=== PATIENT | male | born 1960 | race Caucasian/White ===

== ENCOUNTER 2017-11-01 15:11 | Inpatient (IN) | payer MEDICAID ==
[~2017-11-01] VITALS: Ht 175.3 cm; Wt 78.0 kg
[2017-11-01 15:15] VITALS: BP 142/83
[2017-11-01] MEDS ORDERED: NACL 0.9% 1,000 ML IV SCH (17:37)
[2017-11-01] MEDS ORDERED: NACL 0.9% 1,000 ML IV ONE (17:37)
[2017-11-01] MEDS ORDERED: MORPHINE SULFATE 4 MG/ML SYR IVP ONE (17:40)
[2017-11-01] MEDS ORDERED: METOCLOPRAMIDE 10 MG/2 ML INJ VIAL IVP ONE (17:40)
[2017-11-01] MEDS ORDERED: diphenhydrAMINE 50 MG/ML VIAL IVP ONE (17:40)
[2017-11-01] MEDS ORDERED: FAMOTIDINE 20 MG/2 ML VIAL IVP ONE (17:40)
[2017-11-01] MEDS ORDERED: KETOROLAC 30 MG/ML VIAL IVP ONE (17:40)
[2017-11-01] MEDS ORDERED: PROMETHAZINE 25 MG/ML VIAL IM ONE (17:40)
[2017-11-01 18:01] LABS: BASOPHILS % (AUTO) 0.3 % (0.0-2.0); HEMATOCRIT 42.6 % (36-52); HEMOGLOBIN 14.8 g/dL (12.0-18.0); LYMPHOCYTES # (AUTO) 1.4 K/uL (2.0-11.5); MEAN CORPUSCULAR HEMOGLOBIN 33 pg (27-31); MEAN CORPUSCULAR HGB CONC 35 g/dL (33-37); MONOCYTES # (AUTO) 0.5 K/uL (0.8-1.0); MONOCYTES % (AUTO) 3.7 % (1.7-9.3); PLATELET COUNT (AUTO) 224 K/uL (140-450); RED BLOOD CELL COUNT(AUTO) 4.54 MIL/uL (4.20-6.10); RED CELL DISTRIBUTION WIDTH 12.3 % (11.6-13.7)
[2017-11-01 18:22] LABS: ANION GAP 16.2 (8-16); CARBON DIOXIDE 24.2 mmol/L (21-32); POTASSIUM 3.4 mmol/L (3.5-5.1)
[2017-11-01 18:26] LABS: ALBUMIN 2.9 g/dL (3.4-5.0); TOTAL BILIRUBIN 0.8 mg/dL (0.0-1.0)
[2017-11-01 19:18] LABS: APPEARANCE,URINE CLEAR (CLEAR); BILIRUBIN,URINE 1+ (NEGATIVE); BLOOD, URINE 3+ (NEGATIVE); COLOR,URINE ORANGE (YELLOW); LEUKOCYTE ESTERASE ,URINE NEGATIVE (NEGATIVE); NITRITE, URINE NEGATIVE (NEGATIVE); UGLUCOSE 2+ (NEGATIVE)
[2017-11-01] MEDS ORDERED: LORazepam 2 MG/ML VIAL IM/IVP PRN (19:25)
[2017-11-01] MEDS ORDERED: DOCUSATE SODIUM 100 MG GELCAP PO PRN (19:25)
[2017-11-01] MEDS ORDERED: HYDROcodone/APAP 5/325 MG 1 TAB TAB PO PRN (19:25)
[2017-11-01] MEDS ORDERED: ONDANSETRON 4 MG/2 ML VIAL IM/IVP PRN (19:25)
[2017-11-01] MEDS ORDERED: MORPHINE SULFATE 2 MG/ML SYR IVP PRN (19:25)
[2017-11-01 19:31] LABS: RBC,URINE 3-10 (FEW) /HPF (0-5)
[2017-11-01] MEDS: NACL 0.9% 1,000 ML IV SCH ×2 (19:33→20:46)
[2017-11-01 20:03] LABS: CHOL/HDL RATIO 5.6 (1-4.5); MAGNESIUM 2.1 mg/dL (1.8-2.4); PHOSPHORUS 2.2 mg/dL (2.5-4.9); THYROID STIMULATING HORMONE 0.32 uIU/mL (0.34-3.74)
[2017-11-01 20:20] VITALS: BP 133/73
[2017-11-01] MEDS ORDERED: KCL 20 MEQ/WATER INJ PREMIX 100 ML IV ONE (20:20)
[2017-11-01] MEDS ORDERED: DEXTROSE 50% 50 ML SYR IVP PRN (20:25)
[2017-11-01] MEDS ORDERED: ZOLPIDEM 5 MG TAB PO PRN (21:00)
[2017-11-01] MEDS ORDERED: ACETAMINOPHEN/CODEINE 300/30MG 1 TAB PO ONE (21:30)
[2017-11-01] MEDS ORDERED: ACETAMINOPHEN EXTRA STRENGTH 500 MG TAB PO ONE (21:35)
[2017-11-01] MEDS: BLOOD GLUCOSE MONITORING 1 DEV DEV FS SCH (21:43)
[2017-11-01] MEDS: ACETAMINOPHEN 325 MG TAB PO PRN (21:51)
[2017-11-01] MEDS ORDERED: LEVOFLOXACIN 500 MG/D5W PREMIX 100 ML IV SCH (22:00)
[2017-11-01] MEDS ORDERED: SODIUM PHOS / POTASSIUM PHOS 1 PKT PDR PO SCH (22:00)
[2017-11-01] MEDS: INSULIN LISPRO SLIDING SCALE 100 UNITS/ML VIAL SUBQ PRN (22:48)
[2017-11-01] MEDS: metroNIDAZOLE 500 MG/NS PREMIX 100 ML IV SCH (23:14)
[2017-11-01 23:48] LABS: BARBITURATE, URINE NEG. ng/ml (NEG <=200); BENZODIAZEPINE, URINE NEG. ng/mL (NEG <=200); CANNABINOID, URINE NEG. ng/mL (NEG <=50); COCAINE, URINE NEG. ng/mL (NEG <=300); OPIATE, URINE NEG. ng/mL (NEG <=2000); PHENCYCLIDINE SCREEN,URINE NEG. ng/mL (NEG <=25)
[2017-11-01] MEDS ORDERED: ALBUTEROL SULFATE/IPRATROPIU 3 ML SOL IH PRN (23:50)
[2017-11-02] VITALS: BP 106/71
[2017-11-02] MEDS ORDERED: LEVOFLOXACIN 750 MG/D5W PREMIX 150 ML IV SCH (01:00)
[2017-11-02] MEDS ORDERED: LEVOFLOXACIN 750 MG/D5W PREMIX 150 ML IV ONE (01:11)
[2017-11-02 04:00] VITALS: BP 126/67
[2017-11-02] MEDS: ACETAMINOPHEN 325 MG TAB PO PRN ×2 (04:22→11:47)
[2017-11-02] MEDS: metroNIDAZOLE 500 MG/NS PREMIX 100 ML IV SCH ×3 (04:22→21:09)
[2017-11-02] MEDS: BLOOD GLUCOSE MONITORING 1 DEV DEV FS SCH ×4 (06:13→21:15)
[2017-11-02] MEDS: INSULIN LISPRO SLIDING SCALE 100 UNITS/ML VIAL SUBQ PRN ×4 (06:22→22:11)
[2017-11-02] MEDS ORDERED: ALBUTEROL SULFATE/IPRATROPIU 3 ML SOL IH SCH (07:00)
[2017-11-02 07:45] LABS: BASOPHILS % (AUTO) 0.3 % (0.0-2.0); EOSINOPHILS % (AUTO) 0.1 % (0.0-4.0); HEMATOCRIT 38.4 % (36-52); HEMOGLOBIN 13.2 g/dL (12.0-18.0); LYMPHOCYTES # (AUTO) 0.9 K/uL (2.0-11.5); LYMPHOCYTES % (AUTO) 7.2 % (20.5-51.1); MEAN CORPUSCULAR HEMOGLOBIN 33 pg (27-31); MEAN CORPUSCULAR HGB CONC 34 g/dL (33-37); MEAN CORPUSCULAR VOLUME 95.5 fL (80-94); MONOCYTES # (AUTO) 0.5 K/uL (0.8-1.0); NEUTROPHILS # (AUTO) 10.9 K/uL (1.8-7.7); NEUTROPHILS % (AUTO) 88.4 % (42.2-75.2); PLATELET COUNT (AUTO) 237 K/uL (140-450); RED BLOOD CELL COUNT(AUTO) 4.02 MIL/uL (4.20-6.10); RED CELL DISTRIBUTION WIDTH 12.5 % (11.6-13.7); WHITE BLOOD COUNT (AUTO) 12.4 K/uL (4.8-10.8)
[2017-11-02 07:57] LABS: ANION GAP 17.1 (8-16); CARBON DIOXIDE 21.3 mmol/L (21-32); POTASSIUM 3.4 mmol/L (3.5-5.1)
[2017-11-02 08:00] VITALS: BP 145/84
[2017-11-02 08:05] LABS: MAGNESIUM 2.1 mg/dL (1.8-2.4); PHOSPHORUS 1.7 mg/dL (2.5-4.9)
[2017-11-02] MEDS: LACTOBACILLUS RHAMNOSUS GG 1 EACH CAP PO SCH (09:46)
[2017-11-02] MEDS: ALBUTEROL SULFATE/IPRATROPIU 3 ML SOL IH SCH ×4 (11:23→23:00)
[2017-11-02 12:00] VITALS: BP 143/79
[2017-11-02 16:00] VITALS: BP 123/71
[2017-11-02] MEDS: SODIUM PHOS / POTASSIUM PHOS 1 PKT PDR PO SCH (16:55)
[2017-11-02] MEDS ORDERED: POTASSIUM CHLORIDE 20% 40 MEQ/15 ML UDC PO SCH (17:00)
[2017-11-02] MEDS ORDERED: CYCLOBENZAPRINE 10 MG TAB PO PRN (17:40)
[2017-11-02] MEDS ORDERED: NYSTATIN 500 MU/5 ML UDC PO SCH (17:51)
[2017-11-02 20:00] VITALS: BP 134/75
[2017-11-02] MEDS ORDERED: VANCOMYCIN PER PHARMACY MC PRN (21:35)
[2017-11-02] MEDS ORDERED: KETOROLAC 30 MG/ML VIAL IVP PRN (21:35)
[2017-11-02] MEDS ORDERED: PANTOPRAZOLE 40 MG INJ VIAL IVP SCH ×2 (21:35→22:00)
[2017-11-02] MEDS ORDERED: cefTRIAXone 2,000 MG VIAL ONE (21:59)
[2017-11-02] MEDS: cefTRIAXone 2,000 MG in DEXTROSE 5% 100 ML IV SCH (22:01)
[2017-11-02] MEDS: NACL 0.9% 1,000 ML IV SCH (22:01)
[2017-11-02] MEDS ORDERED: VANCOMYCIN HCL 1,500 MG in NACL 0.9% 500 ML IV SCH (23:00)
[2017-11-02] MEDS ORDERED: VANCOMYCIN 1,000 MG VIAL ONE (23:37)
[2017-11-02] MEDS ORDERED: VANCOMYCIN 500 MG VIAL ONE (23:37)
[2017-11-03] VITALS: BP 119/70
[2017-11-03 01:31] LABS: CSF GLUCOSE 98 mg/dL (40-70)
[2017-11-03] MEDS: ALBUTEROL SULFATE/IPRATROPIU 3 ML SOL IH SCH ×6 (02:50→23:00)
[2017-11-03 04:00] VITALS: BP 134/70
[2017-11-03] MEDS: metroNIDAZOLE 500 MG/NS PREMIX 100 ML IV SCH ×3 (04:59→20:57)
[2017-11-03] MEDS: INSULIN LISPRO SLIDING SCALE 100 UNITS/ML VIAL SUBQ PRN ×3 (06:12→17:47)
[2017-11-03] MEDS: BLOOD GLUCOSE MONITORING 1 DEV DEV FS SCH ×4 (07:02→20:57)
[2017-11-03 07:22] LABS: BASOPHILS % (AUTO) 0.5 % (0.0-2.0); EOSINOPHILS % (AUTO) 0.2 % (0.0-4.0); HEMATOCRIT 39.2 % (36-52); HEMOGLOBIN 13.6 g/dL (12.0-18.0); LYMPHOCYTES # (AUTO) 0.3 K/uL (2.0-11.5); LYMPHOCYTES % (AUTO) 2.7 % (20.5-51.1); MEAN CORPUSCULAR HEMOGLOBIN 33 pg (27-31); MEAN CORPUSCULAR HGB CONC 35 g/dL (33-37); MONOCYTES # (AUTO) 0.2 K/uL (0.8-1.0); MONOCYTES % (AUTO) 1.7 % (1.7-9.3); NEUTROPHILS # (AUTO) 9.8 K/uL (1.8-7.7); NEUTROPHILS % (AUTO) 94.9 % (42.2-75.2); PLATELET COUNT (AUTO) 298 K/uL (140-450); RED BLOOD CELL COUNT(AUTO) 4.09 MIL/uL (4.20-6.10); RED CELL DISTRIBUTION WIDTH 12.5 % (11.6-13.7); WHITE BLOOD COUNT (AUTO) 10.3 K/uL (4.8-10.8)
[2017-11-03 07:50] LABS: ANION GAP 19.3 (8-16); CARBON DIOXIDE 18.2 mmol/L (21-32); CREATININE 0.9 mg/dL (0.7-1.3); POTASSIUM 3.5 mmol/L (3.5-5.1)
[2017-11-03 07:52] LABS: MAGNESIUM 1.8 mg/dL (1.8-2.4); PHOSPHORUS 2.5 mg/dL (2.5-4.9)
[2017-11-03 08:00] VITALS: BP 117/69
[2017-11-03] MEDS ORDERED: VANCOMYCIN 1GM/DEXT 5% PREMIX 200 ML IV SCH (08:58)
[2017-11-03] MEDS: PANTOPRAZOLE 40 MG INJ VIAL IVP SCH (09:00)
[2017-11-03] MEDS: SODIUM PHOS / POTASSIUM PHOS 1 PKT PDR PO SCH ×3 (09:39→16:51)
[2017-11-03] MEDS: CYCLOBENZAPRINE 10 MG TAB PO SCH ×3 (09:39→16:51)
[2017-11-03] MEDS: LACTOBACILLUS RHAMNOSUS GG 1 EACH CAP PO SCH (09:39)
[2017-11-03] MEDS: metFORMIN 500 MG TAB PO SCH ×2 (09:39→16:51)
[2017-11-03] MEDS: VANCOMYCIN 1GM/DEXT 5% PREMIX 200 ML IV SCH ×2 (10:20→17:42)
[2017-11-03] MEDS: NACL 0.9% 1,000 ML IV SCH ×2 (10:20→18:01)
[2017-11-03 12:00] VITALS: BP 95/49
[2017-11-03 16:00] VITALS: BP 124/66
[2017-11-03 20:00] VITALS: BP 121/70
[2017-11-03] MEDS: ACETAMINOPHEN 325 MG TAB PO PRN (20:08)
[2017-11-03] MEDS: cefTRIAXone 2,000 MG in DEXTROSE 5% 100 ML IV SCH (22:18)
[2017-11-04] VITALS: BP 93/49
[2017-11-04 00:36] LABS: SODIUM TIMED,URINE 41 mmol/L
[2017-11-04] MEDS: VANCOMYCIN 1GM/DEXT 5% PREMIX 200 ML IV SCH ×2 (02:54→10:10)
[2017-11-04] MEDS: ALBUTEROL SULFATE/IPRATROPIU 3 ML SOL IH SCH ×6 (03:00→23:18)
[2017-11-04 04:00] VITALS: BP 100/60
[2017-11-04] MEDS: NACL 0.9% 1,000 ML IV SCH ×2 (04:05→14:01)
[2017-11-04] MEDS: metroNIDAZOLE 500 MG/NS PREMIX 100 ML IV SCH ×3 (05:19→20:53)
[2017-11-04 05:54] LABS: COLLECTION TIME,URINE 24 HR; TOTAL VOLUME 24HRS,URINE 1560 mL
[2017-11-04 05:55] LABS: SODIUM URINE, 24HR CALC 64 mmol/24H (40-220)
[2017-11-04] MEDS: INSULIN LISPRO SLIDING SCALE 100 UNITS/ML VIAL SUBQ PRN ×3 (06:25→16:55)
[2017-11-04] MEDS: BLOOD GLUCOSE MONITORING 1 DEV DEV FS SCH ×4 (06:25→20:53)
[2017-11-04] MEDS: ACETAMINOPHEN 325 MG TAB PO PRN (07:41)
[2017-11-04 07:52] LABS: BASOPHILS % (AUTO) 0.1 % (0.0-2.0); EOSINOPHILS # (AUTO) 0.1 K/uL (0-0.4); EOSINOPHILS % (AUTO) 0.9 % (0.0-4.0); HEMATOCRIT 40.3 % (36-52); HEMOGLOBIN 13.8 g/dL (12.0-18.0); LYMPHOCYTES # (AUTO) 0.5 K/uL (2.0-11.5); LYMPHOCYTES % (AUTO) 5.3 % (20.5-51.1); MEAN CORPUSCULAR HEMOGLOBIN 33 pg (27-31); MEAN CORPUSCULAR HGB CONC 34 g/dL (33-37); MEAN CORPUSCULAR VOLUME 96.5 fL (80-94); MONOCYTES # (AUTO) 0.2 K/uL (0.8-1.0); MONOCYTES % (AUTO) 2.5 % (1.7-9.3); NEUTROPHILS # (AUTO) 7.8 K/uL (1.8-7.7); NEUTROPHILS % (AUTO) 91.2 % (42.2-75.2); PLATELET COUNT (AUTO) 357 K/uL (140-450); RED BLOOD CELL COUNT(AUTO) 4.18 MIL/uL (4.20-6.10); RED CELL DISTRIBUTION WIDTH 12.6 % (11.6-13.7); WHITE BLOOD COUNT (AUTO) 8.6 K/uL (4.8-10.8)
[2017-11-04 07:56] VITALS: BP 114/73
[2017-11-04 08:05] LABS: ALBUMIN 2.2 g/dL (3.4-5.0); ANION GAP 15.6 (8-16); CARBON DIOXIDE 20.8 mmol/L (21-32); CREATININE 0.9 mg/dL (0.7-1.3); MAGNESIUM 1.8 mg/dL (1.8-2.4); PHOSPHORUS 2.5 mg/dL (2.5-4.9); POTASSIUM 3.4 mmol/L (3.5-5.1); TOTAL BILIRUBIN 0.4 mg/dL (0.0-1.0)
[2017-11-04] MEDS: LACTOBACILLUS RHAMNOSUS GG 1 EACH CAP PO SCH (08:31)
[2017-11-04] MEDS: CYCLOBENZAPRINE 10 MG TAB PO SCH ×3 (08:31→17:00)
[2017-11-04] MEDS: metFORMIN 500 MG TAB PO SCH ×2 (08:31→16:41)
[2017-11-04] MEDS: PANTOPRAZOLE 40 MG INJ VIAL IVP SCH (08:31)
[2017-11-04] MEDS: APAP/BUTAL/CAFF 325/50/40 MG 1 TAB PO PRN (10:22)
[2017-11-04 11:51] VITALS: BP 110/67
[2017-11-04 16:00] VITALS: BP 96/54
[2017-11-04] MEDS: VANCOMYCIN 1,250 MG in DEXTROSE 5% 250 ML IV SCH (18:03)
[2017-11-04 20:00] VITALS: BP 104/67
[2017-11-04] MEDS: cefTRIAXone 2,000 MG in DEXTROSE 5% 100 ML IV SCH (22:55)
[2017-11-05] VITALS: BP 94/59
[2017-11-05] MEDS: NACL 0.9% 1,000 ML IV SCH ×2 (00:47→09:53)
[2017-11-05] MEDS: VANCOMYCIN 1,250 MG in DEXTROSE 5% 250 ML IV SCH ×2 (02:29→09:45)
[2017-11-05] MEDS: ALBUTEROL SULFATE/IPRATROPIU 3 ML SOL IH SCH ×4 (03:00→11:46)
[2017-11-05 04:00] VITALS: BP 123/74
[2017-11-05] MEDS: metroNIDAZOLE 500 MG/NS PREMIX 100 ML IV SCH (05:10)
[2017-11-05] MEDS: BLOOD GLUCOSE MONITORING 1 DEV DEV FS SCH ×2 (05:51→11:30)
[2017-11-05] MEDS: INSULIN LISPRO SLIDING SCALE 100 UNITS/ML VIAL SUBQ PRN (05:52)
[2017-11-05 07:30] LABS: BASOPHILS # (AUTO) 0.1 K/uL (0.00-0.22); BASOPHILS % (AUTO) 0.9 % (0.0-2.0); EOSINOPHILS # (AUTO) 0.1 K/uL (0-0.4); EOSINOPHILS % (AUTO) 1.6 % (0.0-4.0); HEMATOCRIT 40.4 % (36-52); HEMOGLOBIN 13.9 g/dL (12.0-18.0); LYMPHOCYTES # (AUTO) 0.6 K/uL (2.0-11.5); LYMPHOCYTES % (AUTO) 10.5 % (20.5-51.1); MEAN CORPUSCULAR HEMOGLOBIN 33 pg (27-31); MEAN CORPUSCULAR HGB CONC 34 g/dL (33-37); MEAN CORPUSCULAR VOLUME 95.2 fL (80-94); MONOCYTES # (AUTO) 0.3 K/uL (0.8-1.0); MONOCYTES % (AUTO) 4.8 % (1.7-9.3); NEUTROPHILS # (AUTO) 4.7 K/uL (1.8-7.7); NEUTROPHILS % (AUTO) 82.2 % (42.2-75.2); PLATELET COUNT (AUTO) 419 K/uL (140-450); RED BLOOD CELL COUNT(AUTO) 4.24 MIL/uL (4.20-6.10); RED CELL DISTRIBUTION WIDTH 12.5 % (11.6-13.7); WHITE BLOOD COUNT (AUTO) 5.8 K/uL (4.8-10.8)
[2017-11-05] MEDS ORDERED: AMOX-999 PO (07:44)
[2017-11-05] MEDS ORDERED: ACET-9525 PO (07:44)
[2017-11-05] MEDS ORDERED: GLU500 PO (07:44)
[2017-11-05] MEDS ORDERED: DOCU-299 PO (07:44)
[2017-11-05] MEDS ORDERED: CYCL10TA14 PO (07:44)
[2017-11-05] MEDS ORDERED: LACT10CA PO (07:44)
[2017-11-05] MEDS ORDERED: GLIP5TER PO (07:51)
[2017-11-05 08:00] VITALS: BP 118/70
[2017-11-05 08:22] LABS: ALBUMIN 2.2 g/dL (3.4-5.0); ANION GAP 13.9 (8-16); CARBON DIOXIDE 22.2 mmol/L (21-32); CREATININE 0.9 mg/dL (0.7-1.3); MAGNESIUM 1.5 mg/dL (1.8-2.4); POTASSIUM 3.1 mmol/L (3.5-5.1); TOTAL BILIRUBIN 0.4 mg/dL (0.0-1.0)
[2017-11-05] MEDS: PANTOPRAZOLE 40 MG INJ VIAL IVP SCH (08:34)
[2017-11-05] MEDS: metFORMIN 500 MG TAB PO SCH (08:35)
[2017-11-05] MEDS: CYCLOBENZAPRINE 10 MG TAB PO SCH (08:35)
[2017-11-05] MEDS: LACTOBACILLUS RHAMNOSUS GG 1 EACH CAP PO SCH (08:35)
[2017-11-05] MEDS ORDERED: MAG SULF 2000 MG/WATER PREMIX 50 ML IV ONE (09:10)
[2017-11-05] MEDS ORDERED: POTASSIUM CHLORIDE 10 MEQ TABER PO SCH (09:30)
[2017-11-05] MEDS ORDERED: MAGNESIUM OXIDE 400 MG TAB PO SCH (09:30)
[2017-11-05] MEDS: APAP/BUTAL/CAFF 325/50/40 MG 1 TAB PO PRN (09:52)
[2017-11-05] MEDS ORDERED: MAGN241.1 PO (10:36)
== END 2017-11-05 12:10 | disposition home or self-care (01) | DRG 710 ==
LOC: MED 15:11 → MTU 19:25
PROVIDERS: ADMIT General Practice; ATTEND General Practice
PROC: 009Y3ZZ Drainage of Lumbar Spinal Cord, Percutaneous Approach (ICD-10-PCS; principal; 2017-11-03)
DX: A41.9 Sepsis, unspecified organism (principal); E43 Unspecified severe protein-calorie malnutrition; J18.9 Pneumonia, unspecified organism; J38.01 Paralysis of vocal cords and larynx, unilateral; E11.65 Type 2 diabetes mellitus with hyperglycemia; E87.1 Hypo-osmolality and hyponatremia; E87.8 Other disorders of electrolyte and fluid balance, not elsewhere classified; E83.39 Other disorders of phosphorus metabolism; E87.6 Hypokalemia; E78.5 Hyperlipidemia, unspecified; E66.3 Overweight; Z68.25 Body mass index [BMI] 25.0-25.9, adult; F17.200 Nicotine dependence, unspecified, uncomplicated; A08.4 Viral intestinal infection, unspecified; F17.210 Nicotine dependence, cigarettes, uncomplicated; R51 Headache; M48.02 Spinal stenosis, cervical region
CPT/HCPCS: 36415; 36600; 70450; 70490; 71045; 71046; 71260; 72050; 76770; 80048; 80053; 80202; 80305; 81001; 82009; 82150; 82272; 82803; 82948; 83036; 83605; 83690; 83735; 83930; 83935; 84100; 84134; 84157; 84300; 84443; 85025; 85610; 85730; 86403; 87040; 87045; 87070; 87081; 87086; 87205; 89055; 92610; 93925; 93970; 94640; 96361; 96374; 96375; 97799; 99285; C9113; J0696; J1200; J1815; J1885; J1956; J2270; J2550; J2765; J3370; J3480; J3490; J7030; J7060; J7620; Q0092; Q9967